=== PATIENT | female | born 1955 | race Caucasian/White ===

== ENCOUNTER → 2016-09-04 | Outpatient (CLI) | payer OTHER | LOC: LAB 11:26 | PROVIDERS: ATTEND Emergency Medicine | DX: R07.9 Chest pain, unspecified (principal); M79.602 Pain in left arm | CPT/HCPCS: 36415; 84484 ==

== ENCOUNTER 2017-11-04 10:01 | Day surgery (SDC) | payer OTHER ==
[2017-09-21 09:51] LABS: HEMATOCRIT 42.2 % (36.0-47.0); HEMOGLOBIN 14.1 g/dL (12.0-15.5); MEAN CORPUSCULAR HEMOGLOBIN 27.7 pg (27.0-33.4); MEAN CORPUSCULAR HGB CONC 33.3 g/dL (32.0-36.0); MEAN CORPUSCULAR VOLUME 83 fl (80-97); PLATELET COUNT 194 10^3/uL (150-450); RED BLOOD COUNT 5.07 10^6/uL (3.72-5.28); RED CELL DISTRIBUTION WIDTH 13.9 % (11.5-14.0); WHITE BLOOD COUNT 6.5 10^3/uL (4.0-10.5)
--- NOTE | 2017-09-21 14:08 | EKG REPORT ---
SEVERITY:- NORMAL ECG - SINUS RHYTHM : Confirmed by: Josafat Correa MD 21-Sep-2017 14:07:36
[~2017-11-04 10:01] MED LIST: ACETAMINOPHEN 325 MG TABLET PO PRN; LACTATED RINGERS 1000 ML IV PRN; LIDOCAINE 0.5% INJ-PF (5 MG/ML) 50 ML SDV SUBCUT PRN; RINGERS SOLUTION,LACTATED 1,000 ML IV PRN
[2017-11-04] MEDS ORDERED: PROPOFOL INJ 200 MG/20 ML VIAL IV ONE ×2 (11:10→12:01)
[2017-11-04 11:46] LABS: HEMATOCRIT 38.8 % (36.0-47.0); HEMOGLOBIN 13.2 g/dL (12.0-15.5); MEAN CORPUSCULAR HEMOGLOBIN 27.8 pg (27.0-33.4); MEAN CORPUSCULAR VOLUME 82 fl (80-97); PLATELET COUNT 185 10^3/uL (150-450); RED BLOOD COUNT 4.75 10^6/uL (3.72-5.28); RED CELL DISTRIBUTION WIDTH 13.4 % (11.5-14.0); WHITE BLOOD COUNT 6.1 10^3/uL (4.0-10.5)
--- NOTE | 2017-11-04 12:34 | Operative Report ---
Operative Report DATE OF SURGERY: 11/04/17 PREOPERATIVE DIAGNOSIS: 1. Personal history of colonic polyps. 2. Family history colon cancer. 3 .abdominal pain. 4. Sigmoid diverticulitis POSTOPERATIVE DIAGNOSIS: Same with mild gastritis; diverticulosis of the sigmoid colon; external hemorrhoids, edematous; no evidence of colonic polyps OPERATION: 1. Esophagogastroduodenoscopy. 2. Cold forceps biopsy of gastric antrum. 3. Total colonoscopy to cecum with photodocumentation SURGEON: TR LARKIN ANESTHESIA: LMAC TISSUE REMOVED OR ALTERED: Antral biopsy COMPLICATIONS: None ESTIMATED BLOOD LOSS: None INTRAOPERATIVE FINDINGS: see below PROCEDURE: Patient was taken to the preop holding area to the main operating room with the patient was placed in semirecumbent position, monitoring devices attached, an appropriate level of LMAC anesthesia induced. Mouthpiece inserted. Surgical plan surgical timeout conducted The flexible adult upper endoscope was advanced through the oropharynx, down the posterior pharynx into the upper esophagus through the esophagus into the stomach and then into the duodenum, first and second portions. The patient tolerated the procedure fairly well. The duodenum was normal. The scope was brought back to the pylorus which was normal. The stomach was examined carefully. There was no evidence of retained gastric contents. The scope was retroflexed in the stomach and there is no evidence of hiatal hernia. There was mild gastritis but no evidence of polyp ulcer stricture bleeding or tumor. A single cold forceps biopsy was taken of the gastric antrum and sent for PRINCESS testing. Leading was minimal. The scope was brought back through the GE junction. The Z line was at approximately 36 cm from the incisor. There was no evidence of esophagitis. The scope was drawn through the esophagus and there was no evidence of stricture bleeding or polyp. There was no evidence of esophageal varix. The scope was withdrawn the patient's oropharynx. She tolerated this portion the procedure well. Instrumentation was set up for colonoscopy. The patient was rotated in the left lateral decubitus position. Rectal exam was performed. External edematous hemorrhoid circumferential noted. Rectal examination revealed no masses with the index finger The flexible adult colonoscope was advanced to the anal rectal canal all the way to the cecum. This was an extremely challenging colonoscopy due to the redundancy of the colon; the bowel prep was excellent. This is an excellent study. The patient did require 800 mg plus propofol for adequate sedation. The patient also required manipulation into the supine and right lateral positions to facilitate advancement of the scope all the way to cecum. Cecal visualization, with the ileocecal valve confirmed appropriate intubation designating this is a complete colonoscopy. The scope was withdrawn to light the colon check the mucosa carefully. Other than a few scattered diverticulosis of sigmoid colon, this was a completely normal colon. Was no evidence of tumor stricture bleeding or polyp. Scope was drawn for the patient's anus. She tolerated procedure well. Per surveillance guidelines, patient be appropriate candidate for a conversation about follow-up colonoscopy in approximately 5 years given her personal history of colon polyps, strong family history of colon cancer.
--- NOTE | 2017-11-04 12:38 | Discharge Summary ---
Discharge Summary (SDC) - Discharge Final Diagnosis: screening colonoscopy Date of Surgery: 11/04/17 Discharge Date: 11/04/17 Condition: Stable Treatment or Instructions: DIET: Clear liquid for the day after surgery then progress to normal diet. FOLLOW UP: You may experience loose stool after surgery. Return to clinic in 7-[address] Vásquez. Call clinic sooner with questions/concerns. Referrals: TEE CERVANTES PA-C [Primary Care Provider] - Discharge Diet: Other (Comments) - Clear liquids then progress to normal diet. Discharge Activity: Activity As Tolerated, Walk Frequently Report the Following to Your Physician Immediately: Nausea, Vomiting, Increase in Pain, Fever over 101 Degrees
[2017-11-04] MEDS: PROMETHAZINE HCL INJ 25 MG/1 ML VIAL ONE ×2 (12:40→12:45)
[2017-11-04 14:09] VITALS: BP 136/67
== END 2017-11-04 14:07 | disposition home or self-care (01) ==
LOC: END 10:01
PROVIDERS: ATTEND Surgery
DX: Z12.11 Encounter for screening for malignant neoplasm of colon (principal); K57.30 Diverticulosis of large intestine without perforation or abscess without bleeding; K64.4 Residual hemorrhoidal skin tags; Z86.010 Personal history of colon polyps; Z80.0 Family history of malignant neoplasm of digestive organs; K29.70 Gastritis, unspecified, without bleeding; E16.1 Other hypoglycemia; E88.81 Metabolic syndrome and other insulin resistance; M19.90 Unspecified osteoarthritis, unspecified site; E04.2 Nontoxic multinodular goiter; K58.9 Irritable bowel syndrome, unspecified; Z88.5 Allergy status to narcotic agent; Z88.1 Allergy status to other antibiotic agents; Z88.8 Allergy status to other drugs, medicaments and biological substances; Z79.84 Long term (current) use of oral hypoglycemic drugs; Z79.899 Other long term (current) drug therapy
CPT/HCPCS: 43239; 45378; 93005; 36415 ×2; 85027 ×2; 88342 ×2; 88305 ×2; 93010; J2550; J2704; 813

== ENCOUNTER → 2018-03-17 | Outpatient (CLI) | payer OTHER ==
--- NOTE | 2018-03-17 14:09 | WOMENS IMAGING REPORT ---
EXAM DESCRIPTION: BILAT SCREENING MAMMO W/CAD COMPLETED DATE/TIME: 03/17/2018 1:16 pm REASON FOR STUDY: BILATERAL SCREENING MAMMO Z/12.31 Z12.31 ENCNTR SCREEN MAMMOGRAM FOR MALIGNANT NE OPLASM OF MOODY COMPARISON: 10/02/2015 and 06/08/2013. TECHNIQUE: Standard craniocaudal and mediolateral oblique views of each breast recorded using digita l acquisition. LIMITATIONS: None. FINDINGS: No masses, calcifications or architectural distortion. No areas of suspicion. Read with the assistance of CAD. .[facility] - R2 Cenova Version 1.3 .[facility] Imaging - R2 Cenova Version 1.[address] .[facility] - R2 Cenova Version 2.4 .[facility] - R2 Cenova Version 2.4 .[facility] - R2 [employer] Version 9.2 IMPRESSION: NORMAL MAMMOGRAM. BIRADS 1. BREAST DENSITY: a. The breasts are almost entirely fatty. BIRAD: 1 NEGATIVE RECOMMENDATION: ROUTINE SCREENING COMMENT: The patient has been notified of the results by letter per MQSA requirements. Additional no tification policies are in place for contacting patient with suspicious or incomplete findings. Quality ID #[id number]: The [employer] recommends an annual screening mammogram for women aged 40 years or over. This facility utilizes a reminder system to ensure that all patients receive reminder letters, and/or direct phone calls for appointments. This includes reminders for routine scr eening mammograms, diagnostic mammograms, or other Breast Imaging Interventions when appropriate. Th is patient will be placed in the appropriate reminder system. The [employer] ([employer]) has developed recommendations for screening MRI of the breast s in certain patient populations, to be used in conjunction with mammography. Breast MRI surveillanc e may be appropriate for women with more than 20% lifetime risk of developing breast cancer as deter mined by genetic testing, significant family history of the disease, or history of mantle radiation f or Hodgkins Disease. ACR Practice Guidelines 2008. TECHNICAL DOCUMENTATION: FINDING NUMBER: (1) ASSESSMENT: (1) JOB ID: [id number] [employer]- All Rights Reserved Reading location - IP/workstation name: [facility]
== END ==
LOC: WI 12:49
PROVIDERS: ATTEND Physician Assistant Medical
DX: Z12.31 Encounter for screening mammogram for malignant neoplasm of breast (principal)
CPT/HCPCS: 77067

== ENCOUNTER → 2020-05-08 | Outpatient (CLI) | payer OTHER ==
[~2020-05-08] MED LIST changes: -ACETAMINOPHEN 325 MG TABLET PO PRN; +COVID-19 VACCINE (PFIZER)/PF 30 MCG/0.3 ML VIAL IM ONE; +EPINEPHRINE INJ/PF 1 MG/1 ML AMPULE IM PRN; -LACTATED RINGERS 1000 ML IV PRN; -LIDOCAINE 0.5% INJ-PF (5 MG/ML) 50 ML SDV SUBCUT PRN; -RINGERS SOLUTION,LACTATED 1,000 ML IV PRN
== END ==
LOC: EMPHEALTH 13:52
PROVIDERS: ATTEND Internal Medicine
DX: Z23 Encounter for immunization (principal)
CPT/HCPCS: 91300

== ENCOUNTER → 2020-05-29 | Outpatient (CLI) | payer OTHER | LOC: EMPHEALTH 13:51 | PROVIDERS: ATTEND Internal Medicine | DX: Z23 Encounter for immunization (principal) | CPT/HCPCS: 91300 ==